=== PATIENT | female | born 1980 | race Caucasian/White ===

== ENCOUNTER → 2021-06-06 | Outpatient (CLI) | payer OTHER ==
--- NOTE | 2021-06-06 15:38 | CT ---
EXAMINATION TYPE: CT abdomen pelvis w con DATE OF EXAM: 06/06/2021 HISTORY: inguinal pain for 3 days. Left lower quadrant pain. CT DLP: 1476.6mGycm Automated Exposure Control for Dose Reduction was Utilized. CONTRAST: CT scan of the abdomen and pelvis is performed with oral and with IV Contrast, patient injected with 100 mL of Isovue 300. COMPARISON: None. FINDINGS: LUNG BASES: No significant abnormality is appreciated. LIVER/GB: Contracted gallbladder. No biliary dilatation. PANCREAS: No significant abnormality is seen. SPLEEN: No significant abnormality is seen. ADRENALS: No significant abnormality is seen. KIDNEYS: Symmetric corticomedullary uptake and excretion without hydronephrosis seen bilaterally. BOWEL: Oral contrast reaches level of the mid left colon making evaluation of distal bowel slightly s uboptimal. No suspicious small or large bowel dilatation is seen. Normal contrast-filled appendix. UTERUS/ADNEXA: Anteverted uterus. Symmetric normal size ovaries. LYMPH NODES: No greater than 1cm abdominal or pelvic lymph nodes are appreciated. No groin hernia or adenopathy bilaterally. OSSEOUS STRUCTURES: Slightly hypoplastic right T12 rib. OTHER: No significant additional abnormality is seen. IMPRESSION: No significant acute finding is seen to account for patient's clinical symptoms of left l ower quadrant and inguinal pain.
== END | disposition home or self-care (01) ==
LOC: RADCTMAIN 12:53
PROVIDERS: ATTEND Family Medicine
DX: R10.32 Left lower quadrant pain (principal)
CPT/HCPCS: 74177; Q9967